=== PATIENT | male | born 1940 | race Caucasian/White ===

== ENCOUNTER 2016-09-08 13:33 | Emergency (ER) | payer MEDICARE ==
[~2016-09-08] VITALS: Ht 180.3 cm; Wt 106.8 kg
[~2016-09-08 13:33] MED LIST: 1-ME1LIQ PO; ATEN-102 PO; LISI-363 PO; LORTA5 PO; SM A81CH CHEW; SYNT88TA PO
[2016-09-08 13:36] VITALS: BP 175/74; PULSE 56; RESP 16; TEMP 97.8; O2SAT 96
[2016-09-08 15:13] LABS: AUTOMATED NEUTROPHIL # 5.5 TH/MM3 (1.8-7.7); BASOPHIL % 0.4 % (0.0-2.0); EOSINOPHIL # 0.1 TH/MM3 (0-0.4); EOSINOPHIL % 1.9 % (0.0-4.0); HEMATOCRIT 32.7 % (39.0-51.0); HEMO FLAGS DIFF FINAL; LYMPH % 9.4 % (9.0-44.0); LYMPHOCYTE # 0.7 TH/MM3 (1.0-4.8); MEAN CELL VOLUME 94.7 FL (80.0-100.0); MEAN CORPUSCULAR HEMOGLOBIN 32.5 PG (27.0-34.0); MEAN CORPUSCULAR HGB CONC 34.4 % (32.0-36.0); MONO % 11.1 % (0.0-8.0); NEUT % 77.2 % (16.0-70.0); PLATELET COUNT 337 TH/MM3 (150-450); RED BLOOD COUNT 3.45 MIL/MM3 (4.50-5.90); RED CELL DISTRIBUTION WIDTH 12.5 % (11.6-17.2); WHITE BLOOD COUNT 7.1 TH/MM3 (4.0-11.0)
[2016-09-08 15:39] LABS: BICARBONATE 18.9 MEQ/L (21.0-32.0); POTASSIUM 4.5 MEQ/L (3.5-5.1)
[2016-09-08] MEDS ORDERED: ASPI81CH CHEW (18:10)
[2016-09-08] MEDS ORDERED: SYNT88TA PO (18:10)
[2016-09-08] MEDS ORDERED: LISI40TA PO (18:10)
[2016-09-08] MEDS ORDERED: ATEN50TA PO (18:10)
[2016-09-08 18:25] VITALS: BP 198/84; PULSE 56; RESP 16; O2SAT 97
--- NOTE | 2016-09-08 18:29 | PD ---
HPI Chief Complaint: Respiratory Distress Time Seen by Provider: 18:28 Travel History International Travel<30 days: No Contact w/Intl Traveler<30days: No Traveled to known affect area: No History of Present Illness HPI 75-year-old male with PMH of HTN presents to the ED for evaluation of 5 day history of shortness of breath and increased blood pressure readings. Gradual onset. Patient endorses HILARIO. States that he sometimes wakes from sleep gasping for air. He endorses subjective fevers, wheezing, sinus congestion, clear rhinorrhea. He denies cough, chest pain, abdominal pain, nausea, vomiting , dysuria, swelling of the lower extremities. Patient endorses a [id number] history of smoking. Quit 16 years ago. Denies this years flu shot. PFSH Past Medical History High Cholesterol: Yes Hypertension: Yes Thyroid Disease: Yes Tetanus Vaccination: Unknown Past Surgical History Genitourinary Surgery: Yes (PENILE IMPLANT) Pacemaker: No Tonsillectomy: Yes Social History Alcohol Use: Yes (2 TO 3 GLASSES OF WHISKEY) Tobacco Use: No (QUIT 16 YRS AGO) Substance Use: No Allergies-Medications (Allergen,Severity, Reaction): Coded Allergies: No Known Allergies (Verified , 09/08/16) Reported Meds & Prescriptions Reported Meds & Active Scripts Active Reported Synthroid (Levothyroxine Sodium) 88 Mcg Tab 88 Mcg PO DAILY Lisinopril 40 Mg Tab 40 Mg PO DAILY Atenolol 50 Mg Tab 50 Mg PO BID Aspirin 81 Mg Chew 81 Mg CHEW DAILY Review of Systems Except as stated in HPI: all other systems reviewed are Neg Physical Exam Narrative GENERAL: Well-nourished, well-developed pleasant white male in no acute distress. SKIN: Warm and dry. HEAD: Normocephalic. EYES: No scleral icterus. No injection or drainage. NECK: Supple, trachea midline. No JVD or lymphadenopathy. CARDIOVASCULAR: Regular rate and rhythm without murmurs, gallops, or rubs. 2+ DP and radial pulses bilaterally. RESPIRATORY: Breath sounds equal bilaterally. Diffuse expiratory wheezing in all lung kirby. No accessory muscle use. Speaking in complete sentences. GASTROINTESTINAL: Abdomen soft, non-tender, nondistended. Active bowel sounds. MUSCULOSKELETAL: No cyanosis, or edema. Ambulatory and moves the extremities spontaneously. BACK: Nontender without obvious deformity. No CVA tenderness. Data Data Last Documented VS Vital Signs Date Time Temp Pulse Resp B/P Pulse Ox O2 Delivery O2 Flow Rate FiO2 09/08/16 18:25 56 16 198/84 97 09/08/16 13:36 97.8 Orders Complete Blood Count With Diff (09/08/16 13:40) Basic Metabolic Panel (Bmp) (09/08/16 13:40) Blood Culture (09/08/16 13:40) Electrocardiogram (09/08/16 13:40) B-Type Natriuretic Peptide (09/08/16 18:39) Urinalysis - C+S If Indicated (09/08/16 18:39) Influenzae A/B Antigen (09/08/16 18:39) Chest, Single Ap (09/08/16 18:39) Sodium Chloride 0.9% Flush (Ns Flush) (09/08/16 18:45) Troponin I (09/08/16 19:18) Labs Laboratory Tests Test 09/08/16 09/08/16 14:35 18:45 White Blood Count 7.1 TH/MM3 Red Blood Count 3.45 MIL/MM3 Hemoglobin 11.2 GM/DL Hematocrit 32.7 % Mean Corpuscular Volume 94.7 FL Mean Corpuscular Hemoglobin 32.5 PG Mean Corpuscular Hemoglobin 34.4 % Concent Red Cell Distribution Width 12.5 % Platelet Count 337 TH/MM3 Mean Platelet Volume 7.1 FL Neutrophils (%) (Auto) 77.2 % Lymphocytes (%) (Auto) 9.4 % Monocytes (%) (Auto) 11.1 % Eosinophils (%) (Auto) 1.9 % Basophils (%) (Auto) 0.4 % Neutrophils # (Auto) 5.5 TH/MM3 Lymphocytes # (Auto) 0.7 TH/MM3 Monocytes # (Auto) 0.8 TH/MM3 Eosinophils # (Auto) 0.1 TH/MM3 Basophils # (Auto) 0.0 TH/MM3 CBC Comment DIFF FINAL Differential Comment Sodium Level 126 MEQ/L Potassium Level 4.5 MEQ/L Chloride Level 96 MEQ/L Carbon Dioxide Level 18.9 MEQ/L Anion Gap 11 MEQ/L Blood Urea Nitrogen 12 MG/DL Creatinine 1.01 MG/DL Estimat Glomerular Filtration 72 ML/MIN Rate Random Glucose 94 MG/DL Calcium Level 8.9 MG/DL Urine Color YELLOW Urine Turbidity CLEAR Urine pH 6.0 Urine Specific [place] 1.014 Urine Protein 30 mg/dL Urine Glucose (UA) NEG mg/dL Urine Ketones NEG mg/dL Urine Occult Blood NEG Urine Nitrite NEG Urine Bilirubin NEG Urine Urobilinogen 2.0 MG/DL Urine Leukocyte Esterase TRACE Urine WBC 2 /hpf Urine Squamous Epithelial <1 /hpf Cells Urine Hyaline Casts 19 /lpf Microscopic Urinalysis Comment CULT NOT INDICATED MDM Medical Decision Making Medical Screen Exam Complete: Yes Emergency Medical Condition: Yes Differential Diagnosis Pneumonia versus COPD versus reactive airway disease versus CHF versus YASH versus viral syndrome versus influenza versus other Narrative Course 75-year-old male with PMH of HTN presents to the ED for evaluation of 5 day history of shortness of breath and increased blood pressure readings. Gradual onset. Patient endorses HILARIO. States that he sometimes wakes from sleep gasping for air. He endorses subjective fevers, wheezing, sinus congestion, clear rhinorrhea. He denies cough, chest pain, abdominal pain, nausea, vomiting , dysuria, swelling of the lower extremities. Patient endorses a [id number] history of smoking. Quit 16 years ago. Patient is from [place], no local PCP. Vitals reviewed. Bradycardic, rate in the mid 50s and hypertensive on presentation. Physical exam reveals a nontoxic-appearing white male in no acute distress, speaking in complete sentences, no accessory muscle use. There is mild diffuse expiratory wheezing in the lung kirby. Abdominal exam benign. No edema of the lower extremities. IV was established. Lab work, flu swab, CXR, EKG ordered and pending. This patient is transferred to the medical pods under the care of Dr. Truong. Please see her note for disposition. Alysia Al Sep 08, 2016 18:29
[2016-09-08] MEDS ORDERED: SODIUM CHLORIDE 0.9% FLUSH 5 ML FLUSH IVF PRN (18:45)
--- NOTE | 2016-09-08 19:18 | PD ---
Physical Exam Date Seen by Provider: Sep 08, 2016 Time Seen by Provider: 19:17 Narrative GENERAL: Well-developed well-nourished male in no acute distress no respiratory distress SKIN: Warm and dry. HEAD: Normocephalic. EYES: No scleral icterus. No injection or drainage. NECK: Supple, trachea midline. No JVD or lymphadenopathy. CARDIOVASCULAR: Regular rate and rhythm without murmurs, gallops, or rubs. RESPIRATORY: Breath sounds equal bilaterally. No accessory muscle use. GASTROINTESTINAL: Abdomen soft, non-tender, nondistended. MUSCULOSKELETAL: No cyanosis, or edema. BACK: Nontender without obvious deformity. No CVA tenderness. Data Data Last Documented VS Vital Signs Date Time Temp Pulse Resp B/P Pulse Ox O2 Delivery O2 Flow Rate FiO2 09/08/16 22:14 98.1 60 20 177/75 97 Room Air Orders Complete Blood Count With Diff (09/08/16 13:40) Basic Metabolic Panel (Bmp) (09/08/16 13:40) Blood Culture (09/08/16 13:40) Electrocardiogram (09/08/16 13:40) B-Type Natriuretic Peptide (09/08/16 18:39) Urinalysis - C+S If Indicated (09/08/16 18:39) Influenzae A/B Antigen (09/08/16 18:39) Chest, Single Ap (09/08/16 18:39) Sodium Chloride 0.9% Flush (Ns Flush) (09/08/16 18:45) Troponin I (09/08/16 19:18) Albuterol-Ipratropium Neb (Duoneb Neb) (09/08/16 20:45) Enalaprilat Inj (Vasotec Inj) (09/08/16 21:30) Furosemide Inj (Lasix Inj) (09/08/16 22:15) Furosemide (Lasix) (09/08/16 22:30) Azithromycin (Zithromax) (09/08/16 22:30) Labs Laboratory Tests Test 09/08/16 09/08/16 14:35 18:45 White Blood Count 7.1 TH/MM3 Red Blood Count 3.45 MIL/MM3 Hemoglobin 11.2 GM/DL Hematocrit 32.7 % Mean Corpuscular Volume 94.7 FL Mean Corpuscular Hemoglobin 32.5 PG Mean Corpuscular Hemoglobin 34.4 % Concent Red Cell Distribution Width 12.5 % Platelet Count 337 TH/MM3 Mean Platelet Volume 7.1 FL Neutrophils (%) (Auto) 77.2 % Lymphocytes (%) (Auto) 9.4 % Monocytes (%) (Auto) 11.1 % Eosinophils (%) (Auto) 1.9 % Basophils (%) (Auto) 0.4 % Neutrophils # (Auto) 5.5 TH/MM3 Lymphocytes # (Auto) 0.7 TH/MM3 Monocytes # (Auto) 0.8 TH/MM3 Eosinophils # (Auto) 0.1 TH/MM3 Basophils # (Auto) 0.0 TH/MM3 CBC Comment DIFF FINAL Differential Comment Sodium Level 126 MEQ/L Potassium Level 4.5 MEQ/L Chloride Level 96 MEQ/L Carbon Dioxide Level 18.9 MEQ/L Anion Gap 11 MEQ/L Blood Urea Nitrogen 12 MG/DL Creatinine 1.01 MG/DL Estimat Glomerular Filtration 72 ML/MIN Rate Random Glucose 94 MG/DL Calcium Level 8.9 MG/DL Troponin I LESS THAN 0.02 NG/ML B-Type Natriuretic Peptide 770 PG/ML Urine Color YELLOW Urine Turbidity CLEAR Urine pH 6.0 Urine Specific [place] 1.014 Urine Protein 30 mg/dL Urine Glucose (UA) NEG mg/dL Urine Ketones NEG mg/dL Urine Occult Blood NEG Urine Nitrite NEG Urine Bilirubin NEG Urine Urobilinogen 2.0 MG/DL Urine Leukocyte Esterase TRACE Urine WBC 2 /hpf Urine Squamous Epithelial <1 /hpf Cells Urine Hyaline Casts 19 /lpf Microscopic Urinalysis Comment CULT NOT INDICATED MDM Medical Record Reviewed: Yes Supervised Visit with SHONDA: Yes Interpretation(s) ekg: sinus bradycardia with occasional PVCs no acute ST elevation or injury pattern change noted Laboratory Tests Test 09/08/16 09/08/16 14:35 18:45 White Blood Count 7.1 TH/MM3 Red Blood Count 3.45 MIL/MM3 Hemoglobin 11.2 GM/DL Hematocrit 32.7 % Mean Corpuscular Volume 94.7 FL Mean Corpuscular Hemoglobin 32.5 PG Mean Corpuscular Hemoglobin 34.4 % Concent Red Cell Distribution Width 12.5 % Platelet Count 337 TH/MM3 Mean Platelet Volume 7.1 FL Neutrophils (%) (Auto) 77.2 % Lymphocytes (%) (Auto) 9.4 % Monocytes (%) (Auto) 11.1 % Eosinophils (%) (Auto) 1.9 % Basophils (%) (Auto) 0.4 % Neutrophils # (Auto) 5.5 TH/MM3 Lymphocytes # (Auto) 0.7 TH/MM3 Monocytes # (Auto) 0.8 TH/MM3 Eosinophils # (Auto) 0.1 TH/MM3 Basophils # (Auto) 0.0 TH/MM3 CBC Comment DIFF FINAL Differential Comment Sodium Level 126 MEQ/L Potassium Level 4.5 MEQ/L Chloride Level 96 MEQ/L Carbon Dioxide Level 18.9 MEQ/L Anion Gap 11 MEQ/L Blood Urea Nitrogen 12 MG/DL Creatinine 1.01 MG/DL Estimat Glomerular Filtration 72 ML/MIN Rate Random Glucose 94 MG/DL Calcium Level 8.9 MG/DL Troponin I LESS THAN 0.02 NG/ML B-Type Natriuretic Peptide 770 PG/ML Urine Color YELLOW Urine Turbidity CLEAR Urine pH 6.0 Urine Specific [place] 1.014 Urine Protein 30 mg/dL Urine Glucose (UA) NEG mg/dL Urine Ketones NEG mg/dL Urine Occult Blood NEG Urine Nitrite NEG Urine Bilirubin NEG Urine Urobilinogen 2.0 MG/DL Urine Leukocyte Esterase TRACE Urine WBC 2 /hpf Urine Squamous Epithelial <1 /hpf Cells Urine Hyaline Casts 19 /lpf Microscopic Urinalysis Comment CULT NOT INDICATED Last Impressions Chest X-Ray 09/08/16 1839 Signed Impressions: Service Date/Time: Thursday, September 08, 2016 19:13 - CONCLUSION: 1. Minimal basilar atelectasis. Jose Armando Durant MD Differential Diagnosis Dyspnea, CHF, ACS, PE, pneumonia, bronchitis, viral syndrome, influenza Narrative Course 75-year-old male with 4 days of dyspnea at rest and on exertion without chest pain referred neck jaw back shoulder arm pain nausea vomiting or sweats. Patient has noted some cough with rhinorrhea and nasal congestion. No recent long distance travel protracted bedrest her surgical procedure. No history of clotting disorder. Patient denies any history of heart disease. Patient has not noticed any lower extremity pain or swelling. Patient has had subjective fever and chills. Patient states symptoms remind him of previous pneumonia. Accepted in transfer of care from triage PA-C. Diagnosis Primary Impression: Acute bronchitis Additional Impressions: CHF (congestive heart failure) Hypertension Referrals: Primary Care Physician 2 days Patient Instructions: General Instructions Additional Instruction: Complete course of antibiotic as prescribed Use inhaler as needed for wheezing and shortness breath Take medication as prescribed as needed to help remove some excess fluid and continue take her blood pressure medications as prescribed Follow-up with your primary care provider on Sunday call office to schedule appointment Return to the emergency department for any concerns chest pain shortness of breath fever or change in condition Med/Other Pt SpecificInfo: Prescription(s) given Scripts E-Z Spacer-Aerosol Holding Chamber 1 Mis Mis #1 EA .ROUTE DIRECTED Ref 0 Prov:Almaz Truong MD 09/08/16 Albuterol 6.7 GM Inh (Proventil Hfa 6.7 GM Inh)90 Mcg/Act Aer2 Puff INH Q4-6H PRN (SHORTNESS OF BREATH) #1 INHALER Ref 0 Prov:Almaz Truong MD 09/08/16 Furosemide (Lasix)20 Mg Tab20 Mg PO DAILY #7 TAB Ref 0 Prov:Almaz Truong MD 09/08/16 Azithromycin (Zithromax Z-Zay)250 Mg Fmgx096 Mg PO DIRECTED #1 DSPK Ref 0 500 MG (2 tabs) day 1, then 1 tab days 2-5. Prov:Almaz Truong MD 09/08/16 Disposition: 01 DISCHARGE HOME Condition: Stable Almaz Truong MD Sep 08, 2016 19:18
[2016-09-08 19:39] LABS: BLOOD, URINE NEG (NEG); COMMENT (UR) CULT NOT INDICATED; CULTURE IF INDICATED CULT NOT INDICATED; GLUCOSE,URINE NEG (NEG); HYALINE CAST, URINE 19 /lpf (RARE); KETONE, URINE NEG (NEG); NITRITE,URINE NEG (NEG); SQUAMOUS EPITHELIAL CELL URINE <1 /hpf (0-5); URINE COLOR YELLOW (YELLW/STRAW)
--- NOTE | 2016-09-08 20:34 | RADRPT ---
EXAM DATE/TIME: 09/08/2016 19:13 [facility] COMPARISON: No previous studies available for comparison. INDICATIONS : Short of breath. MEDICAL HISTORY : None. SURGICAL HISTORY : None. ENCOUNTER: Initial ACUITY: 1 day PAIN SCORE: 0/10 LOCATION: Bilateral chest FINDINGS: There is some basilar density characteristic of atelectasis. No effusion. No pneumothorax. Aorta mild ly tortuous. CONCLUSION: 1. Minimal basilar atelectasis. Jose Armando Durant MD on September 08, 2016 at 20:32 Board Certified Radiologist. This report was verified electronically.
[2016-09-08] MEDS ORDERED: RESP: ALBUTEROL 2.5 MG/IPRATROPIUM 0.5 MG NEB (SCH) NEB ONE (20:45)
[2016-09-08] MEDS ORDERED: ENALAPRILAT 1.25 MG/ML VIAL IV PUSH ONE (21:30)
[2016-09-08 22:14] VITALS: BP 177/75; PULSE 60; RESP 20; TEMP 98.1; O2SAT 97
[2016-09-08] MEDS ORDERED: FUROSEMIDE 40 MG/4 ML VIAL IV PUSH ONE (22:15)
[2016-09-08] MEDS ORDERED: FUROSEMIDE 40 MG TAB PO ONE (22:30)
[2016-09-08] MEDS ORDERED: AZITHROMYCIN 250 MG TAB PO ONE (22:30)
[2016-09-08] MEDS ORDERED: FURO1TAB62 PO (22:34)
[2016-09-08] MEDS ORDERED: ZITHTAB PO (22:34)
[2016-09-08] MEDS ORDERED: ALBU6.7H INH (22:40)
[2016-09-08] MEDS ORDERED: E-ZMIS3 (22:42)
--- NOTE | 2016-09-11 23:33 | EKG ---
Date Performed: 09/08/2016 Time Performed: 14:02:55 PTAGE: 75 years EKG: Sinus bradycardia, PVCs MINIMAL ST DEPRESSION ABNORMAL RHYTHM ECG PREVIOUS TRACING : 10/28/2013 07.11 Compared to prior tracing no significant change DOCTOR: Fili Gurrola Interpretating Date/Time 09/11/2016 23:30:50
== END 2016-09-08 22:54 | disposition home or self-care (01) ==
LOC: NEPC 13:33
DX: J20.9 Acute bronchitis, unspecified (principal); I50.9 Heart failure, unspecified; I10 Essential (primary) hypertension; E78.00 Pure hypercholesterolemia, unspecified; E07.9 Disorder of thyroid, unspecified; Z87.891 Personal history of nicotine dependence; R06.2 Wheezing
CPT/HCPCS: 71010; 80048; 81001; 83880; 84484; 85025; 87040; 87804; 93005; 94664